=== PATIENT | female | born 1960 | race African-American/Black ===

== ENCOUNTER 2023-10-23 15:00 | Inpatient (IN) | payer OTHER, MEDICAID ==
[~2023-10-23 15:00] MED LIST: Iopamidol 370 76% 100 ML VIAL ONE
[2023-10-23] MEDS ORDERED: Albuterol 1.25 MG (3 mL) NEB ONE (15:09)
[2023-10-23 15:29] LABS: Actual Bicarbonate (HCO3v) 31.3 mEq/L (22-28); Analyzer IN Cardio CS ER; Base Excess 2.6 mEq/L (-2 - +2); Calcium, Ionized (venous) 1.06 mmol/L (1.16-1.32); Chloride (VBG) 99 mmol/L (98-106); Hematocrit-VBG 57 % (36.0-47.0); Hemoglobin (Hb) 19.3 g/dL (11.7-16.1); Potassium (VBG) 4.39 mmol/L (3.70-5.30); Puncture Site Other Site; Sodium 142 mmol/L (133-146); pH (venous) 7.319 (7.32-7.43)
[2023-10-23 16:08] LABS: ALT (SGPT) 42 U/L (8-55); AST (SGOT) 42 U/L (5-34); Alkaline Phosphatase 94 U/L (40-110); Anion Gap 18 mmol/L (10-20); BUN (Urea Nitrogen) 15 mg/dL (9.8-20.1); Bilirubin, Total 1.4 mg/dL (0.2-1.2); Calc. Creatinine Clearance 0 mL/min (70-130); Calcium 9.1 mg/dL (7.8-10.44); Carbon Dioxide 24 mmol/L (23-31); Chloride 103 mmol/L (98-107); Estimated GFR 90; Globulin 3.1 g/dL (2.4-3.5); Glucose 93 mg/dL (80-115); Magnesium 2.5 mg/dL (1.6-2.6); Protein, Total 7.1 g/dL (5.8-8.1); Sodium 140 mmol/L (136-145)
[2023-10-23 16:09] LABS: #Monocytes 0.7 10x3/uL (0.0-1.1); %Basophils 0.3 % (0.0-2.0); %Lymphocytes 13.5 % (18.0-47.0); %Monocytes 7.7 % (0.0-10.0); %Neutrophils 78.2 % (40.0-75.0); Hematocrit 53.9 % (34.9-44.5); Hemoglobin 18.3 g/dL (12.0-15.5); Mean Corpuscular Hemoglobin 38.4 pg (27.0-33.0); Mean Corpuscular Volume 113.2 fl (81.6-98.3); Platelet Count 153 10x3/uL (150-450); Red Blood Cell (RBC) Count 4.76 10x6/uL (3.90-5.03)
[2023-10-23 16:18] LABS: Troponin I 0.118 ng/mL (< 0.028)
[2023-10-23 16:38] LABS: Anisocytosis SLIGHT = 6-15 cells (100X) (0-5/hpf); Macrocytosis MODERATE=16-30 cells (100X) (0-5/hpf); Platelet Adequacy Comment Appears Adequate
[2023-10-23] MEDS ORDERED: Aspirin Chewable 81 MG TAB ONE (17:37)
[2023-10-23] MEDS ORDERED: Furosemide 40 MG (4 mL) VIAL ONE (17:37)
[2023-10-23] MEDS ORDERED: Azithromycin 500 MG VIAL ONE (17:38)
[2023-10-23] MEDS ORDERED: cefTRIAXone (ROCEPHIN) 1 GM VIAL ONE (17:38)
[2023-10-23] MEDS ORDERED: Ondansetron ODT 4 MG TAB PO PRN (17:40)
[2023-10-23] MEDS ORDERED: Acetaminophen 325 MG TAB PO PRN (17:40)
[2023-10-23] MEDS ORDERED: Ipratropium/Albuterol 3 ML NEB NEB PRN (17:47)
[2023-10-23 17:53] LABS: Actual Bicarbonate (HCO3v) 32.3 mEq/L (22-28); Analyzer IN Cardio CS ER; Base Excess 1.8 mEq/L (-2 - +2); Chloride (VBG) 99 mmol/L (98-106); Hematocrit-VBG 52 % (36.0-47.0); Hemoglobin (Hb) 17.8 g/dL (11.7-16.1); Potassium (VBG) 5.42 mmol/L (3.70-5.30); Puncture Site Other Site; RapidComm Collect By LAB; Sodium 141 mmol/L (133-146); pH (venous) 7.246 (7.32-7.43)
[2023-10-23] MEDS ORDERED: Azithromycin 500 MG in Sodium Chloride 0.9% 250 ML 250 ML IVPB SCH (18:00)
[2023-10-23 19:12] LABS: Lactic Acid 2.5 mmol/L (0.5-2.2)
[2023-10-23] MEDS ORDERED: Ipratropium/Albuterol 3 ML NEB ONE (19:51)
[2023-10-23 20:35] VITALS: BMI 20.5
[2023-10-23 21:59] LABS: Actual Bicarbonate (HCO3v) 29.9 mEq/L (22-28); Analyzer IN Cardio CS ICU; Base Excess 1.8 mEq/L (-2 - +2); Calcium, Ionized (venous) 1.08 mmol/L (1.16-1.32); Chloride (VBG) 100 mmol/L (98-106); Critical Notified By: CP.PH; Critical Notified Whom: RN-Ceranise; Hematocrit-VBG 54 % (36.0-47.0); Hemoglobin (Hb) 18.5 g/dL (11.7-16.1); Potassium (VBG) 4.17 mmol/L (3.70-5.30); Puncture Site Other Site; RapidComm Collect By LAB.YY; Sodium 142 mmol/L (133-146); pH (venous) 7.321 (7.32-7.43)
[2023-10-23 22:17] LABS: Troponin I 0.165 ng/mL (< 0.028)
[2023-10-24] MEDS: Ipratropium/Albuterol 3 ML NEB NEB SCH ×4 (01:15→20:05)
[2023-10-24 02:45] LABS: Anion Gap 15 mmol/L (10-20); BUN (Urea Nitrogen) 20 mg/dL (9.8-20.1); Calc. Creatinine Clearance 63 mL/min (70-130); Calcium 8.5 mg/dL (7.8-10.44); Carbon Dioxide 28 mmol/L (23-31); Chloride 103 mmol/L (98-107); Estimated GFR 78; Glucose 113 mg/dL (80-115); Potassium 4.2 mmol/L (3.5-5.1); Sodium 142 mmol/L (136-145)
[2023-10-24 02:48] LABS: #Monocytes 0.2 10x3/uL (0.0-1.1); #Neutrophils 4.4 10x3/uL (1.5-8.4); %Basophils 0.2 % (0.0-2.0); %Lymphocytes 9.6 % (18.0-47.0); %Monocytes 4.5 % (0.0-10.0); %Neutrophils 85.5 % (40.0-75.0); Hematocrit 49.1 % (34.9-44.5); Hemoglobin 17.1 g/dL (12.0-15.5); Mean Corpuscular HGB CONC 34.8 g/dL (32.0-36.0); Mean Corpuscular Hemoglobin 37.7 pg (27.0-33.0); Mean Corpuscular Volume 108.4 fl (81.6-98.3); Mean Platelet Volume 11.5 fl (7.4-10.4); Platelet Count 149 10x3/uL (150-450); Red Blood Cell (RBC) Count 4.53 10x6/uL (3.90-5.03); White Blood Cell (WBC) Count 5.1 10x3/uL (3.5-10.5)
[2023-10-24 02:50] LABS: Troponin I 0.129 ng/mL (< 0.028)
[2023-10-24] MEDS: Furosemide 40 MG (4 mL) VIAL SLOW IVP SCH ×2 (05:06→14:23)
[2023-10-24] MEDS: methylPREDNISolone Sod Succ/PF 125 MG/2 ML VIAL IVP SCH (08:07)
[2023-10-24] MEDS ORDERED: Enoxaparin 40 MG (0.4 mL) SYRINGE SC SCH (09:00)
[2023-10-24] MEDS ORDERED: cefTRIAXone\\ROCEPHIN 2 GM in Sodium Chloride 0.9% 100 ML IVPB SCH (17:30)
[2023-10-24] MEDS ORDERED: Azithromycin 500 MG in Sodium Chloride 0.9% 250 ML 250 ML IVPB SCH (18:00)
[2023-10-24] MEDS: Doxycycline 100 MG in Sodium Chloride 0.9% 100 ML IVPB SCH (20:07)
[2023-10-25] MEDS: Ipratropium/Albuterol 3 ML NEB NEB SCH ×2 (01:10→07:20)
[2023-10-25] MEDS ORDERED: Metoprolol Tartrate 25 MG TAB PO SCH (03:30)
[2023-10-25 03:33] LABS: #Eosinphils 0.2 10x3/uL (0.0-0.5); #Neutrophils 6.8 10x3/uL (1.5-8.4); %Basophils 0.3 % (0.0-2.0); %Eosinophils 1.8 % (0.0-6.0); %Lymphocytes 8.2 % (18.0-47.0); %Monocytes 11.5 % (0.0-10.0); Hematocrit 48.3 % (34.9-44.5); Hemoglobin 17.2 g/dL (12.0-15.5); Mean Corpuscular HGB CONC 35.6 g/dL (32.0-36.0); Mean Corpuscular Volume 109.5 fl (81.6-98.3); Mean Platelet Volume 11.8 fl (7.4-10.4); Platelet Count 148 10x3/uL (150-450); RBC Distribution Width 15.9 % (11.5-14.5); Red Blood Cell (RBC) Count 4.41 10x6/uL (3.90-5.03); White Blood Cell (WBC) Count 8.7 10x3/uL (3.5-10.5)
[2023-10-25] MEDS ORDERED: dilTIAZem 25 MG/5 ML VIAL SLOW IVP SCH (03:45)
[2023-10-25 03:47] LABS: Anion Gap 12 mmol/L (10-20); BUN (Urea Nitrogen) 32 mg/dL (9.8-20.1); Calc. Creatinine Clearance 48 mL/min (70-130); Calcium 8.7 mg/dL (7.8-10.44); Carbon Dioxide 31 mmol/L (23-31); Chloride 102 mmol/L (98-107); Estimated GFR 56; Glucose 105 mg/dL (80-115); Potassium 4.3 mmol/L (3.5-5.1); Sodium 141 mmol/L (136-145)
[2023-10-25 04:01] LABS: Magnesium 2.3 mg/dL (1.6-2.6)
[2023-10-25] MEDS ORDERED: dilTIAZem 125 MG, Admixture Fee 1 EACH in Sodium Chloride 0.9% 100 ML IVPB SCH (05:00)
[2023-10-25] MEDS ORDERED: Metoprolol Tartrate 5 MG (5 mL) VIAL IVP SCH (05:15)
[2023-10-25] MEDS: Furosemide 40 MG (4 mL) VIAL SLOW IVP SCH (05:18)
[2023-10-25 05:44] LABS: Actual Bicarbonate (HCO3v) 29.6 mEq/L (22-28); Analyzer IN Cardio CS ICU; Base Excess 3.9 mEq/L (-2 - +2); Calcium, Ionized (venous) 1.08 mmol/L (1.16-1.32); Chloride (VBG) 101 mmol/L (98-106); Critical Notified By: CP.PH; Hematocrit-VBG 51 % (36.0-47.0); Hemoglobin (Hb) 17.2 g/dL (11.7-16.1); Potassium (VBG) 4.76 mmol/L (3.70-5.30); Puncture Site Other Site; RapidComm Collect By LAB.YY; Sodium 142 mmol/L (133-146); pH (venous) 7.411 (7.32-7.43)
[2023-10-25] MEDS: Doxycycline 100 MG in Sodium Chloride 0.9% 100 ML IVPB SCH ×2 (08:43→20:13)
[2023-10-25] MEDS: methylPREDNISolone Sod Succ/PF 125 MG/2 ML VIAL IVP SCH (08:43)
[2023-10-25] MEDS: Apixaban 5 MG TAB PO SCH ×2 (08:45→20:13)
[2023-10-25] MEDS: Furosemide 40 MG TAB PO SCH (08:46)
[2023-10-25] MEDS ORDERED: Lisinopril 2.5 MG TAB PO SCH (09:00)
[2023-10-25] MEDS ORDERED: Arformoterol 15 MCG/2 ML NEB NEB SCH (09:45)
[2023-10-25] MEDS ORDERED: Budesonide 0.5 MG/2 ML NEB INH SCH (09:45)
[2023-10-25] MEDS: methylPREDNISolone Sod Succ 40 MG VIAL IVP SCH ×3 (12:00→23:54)
[2023-10-25] MEDS: dilTIAZem CD 120 MG CAP PO SCH (15:48)
[2023-10-25] MEDS: Arformoterol 15 MCG/2 ML NEB NEB SCH (19:19)
[2023-10-25] MEDS: Budesonide 0.5 MG/2 ML NEB INH SCH (19:21)
[2023-10-26 03:29] LABS: #Monocytes 0.1 10x3/uL (0.0-1.1); #Neutrophils 7.3 10x3/uL (1.5-8.4); %Basophils 0.3 % (0.0-2.0); %Lymphocytes 4.3 % (18.0-47.0); %Monocytes 1.8 % (0.0-10.0); %Neutrophils 93.2 % (40.0-75.0); Hematocrit 48.7 % (34.9-44.5); Hemoglobin 16.6 g/dL (12.0-15.5); Mean Corpuscular HGB CONC 34.1 g/dL (32.0-36.0); Mean Corpuscular Hemoglobin 37.3 pg (27.0-33.0); Mean Corpuscular Volume 109.4 fl (81.6-98.3); Platelet Count 164 10x3/uL (150-450); RBC Distribution Width 15.8 % (11.5-14.5); Red Blood Cell (RBC) Count 4.45 10x6/uL (3.90-5.03); White Blood Cell (WBC) Count 7.8 10x3/uL (3.5-10.5)
[2023-10-26 04:17] LABS: ALT (SGPT) 29 U/L (8-55); AST (SGOT) 25 U/L (5-34); Albumin 3.2 g/dL (3.4-4.8); Alkaline Phosphatase 73 U/L (40-110); Anion Gap 13 mmol/L (10-20); BUN (Urea Nitrogen) 36 mg/dL (9.8-20.1); Bilirubin, Direct 0.1 mg/dL (0.1-0.3); Bilirubin, Total 0.3 mg/dL (0.2-1.2); Calc. Creatinine Clearance 59 mL/min (70-130); Calcium 8.8 mg/dL (7.8-10.44); Carbon Dioxide 29 mmol/L (23-31); Chloride 102 mmol/L (98-107); Estimated GFR 72; Glucose 214 mg/dL (80-115); Potassium 4.3 mmol/L (3.5-5.1); Sodium 140 mmol/L (136-145)
[2023-10-26] MEDS: methylPREDNISolone Sod Succ 40 MG VIAL IVP SCH ×3 (05:27→20:18)
[2023-10-26] MEDS: Arformoterol 15 MCG/2 ML NEB NEB SCH ×2 (07:08→21:25)
[2023-10-26] MEDS: Budesonide 0.5 MG/2 ML NEB INH SCH ×2 (07:09→21:20)
[2023-10-26] MEDS: Doxycycline 100 MG in Sodium Chloride 0.9% 100 ML IVPB SCH ×2 (08:32→20:19)
[2023-10-26] MEDS: dilTIAZem CD 120 MG CAP PO SCH (08:42)
[2023-10-26] MEDS: Furosemide 40 MG TAB PO SCH (08:42)
[2023-10-26] MEDS: Apixaban 5 MG TAB PO SCH ×2 (08:42→20:18)
[2023-10-26] MEDS: Lorazepam 0.5 MG TAB PO PRN (18:17)
[2023-10-26] MEDS ORDERED: Polyethylene Glycol 3350 17 GM Packet PO SCH (20:00)
[2023-10-26] MEDS ORDERED: Metoprolol Tartrate 5 MG (5 mL) VIAL ONE (21:32)
[2023-10-26] MEDS ORDERED: Lorazepam 2 MG/ML VIAL ONE (21:44)
[2023-10-26] MEDS ORDERED: Lorazepam 2 MG/ML VIAL SLOW IVP SCH (21:45)
[2023-10-26] MEDS ORDERED: Metoprolol Tartrate 5 MG (5 mL) VIAL IVP SCH (21:45)
[2023-10-26] MEDS ORDERED: dilTIAZem 30 MG TAB PO SCH (22:00)
[2023-10-27] MEDS ORDERED: Nicotine 21 MG PATCH TD SCH (00:30)
[2023-10-27] MEDS ORDERED: Metoprolol Tartrate 5 MG (5 mL) VIAL IVP SCH (01:15)
[2023-10-27 03:37] LABS: #Monocytes 0.3 10x3/uL (0.0-1.1); #Neutrophils 10.2 10x3/uL (1.5-8.4); %Basophils 0.3 % (0.0-2.0); %Eosinophils 0.2 % (0.0-6.0); %Lymphocytes 5.1 % (18.0-47.0); %Monocytes 2.7 % (0.0-10.0); %Neutrophils 91.3 % (40.0-75.0); Hematocrit 51.7 % (34.9-44.5); Hemoglobin 17.7 g/dL (12.0-15.5); Mean Corpuscular HGB CONC 34.2 g/dL (32.0-36.0); Mean Corpuscular Hemoglobin 37.1 pg (27.0-33.0); Mean Corpuscular Volume 108.4 fl (81.6-98.3); Mean Platelet Volume 11.4 fl (7.4-10.4); Platelet Count 158 10x3/uL (150-450); RBC Distribution Width 15.8 % (11.5-14.5); Red Blood Cell (RBC) Count 4.77 10x6/uL (3.90-5.03); White Blood Cell (WBC) Count 11.1 10x3/uL (3.5-10.5)
[2023-10-27 03:50] LABS: Anion Gap 14 mmol/L (10-20); BUN (Urea Nitrogen) 40 mg/dL (9.8-20.1); Calc. Creatinine Clearance 65 mL/min (70-130); Carbon Dioxide 26 mmol/L (23-31); Chloride 103 mmol/L (98-107); Estimated GFR 81; Glucose 117 mg/dL (80-115); Sodium 138 mmol/L (136-145)
[2023-10-27 04:02] LABS: Magnesium 2.3 mg/dL (1.6-2.6)
[2023-10-27 04:07] LABS: Free T4 (Free Thyroxine) 0.93 ng/dL (0.70-1.48); Thyroid Stimulating Hormone 0.1144 uIU/mL (0.35-4.94)
[2023-10-27] MEDS: Budesonide 0.5 MG/2 ML NEB INH SCH ×2 (07:32→19:46)
[2023-10-27] MEDS: methylPREDNISolone Sod Succ 40 MG VIAL IVP SCH ×2 (07:35→20:57)
[2023-10-27] MEDS: Apixaban 5 MG TAB PO SCH ×2 (07:36→20:56)
[2023-10-27] MEDS: Polyethylene Glycol 3350 17 GM Packet PO SCH (07:36)
[2023-10-27] MEDS: Methimazole 5 MG TAB PO SCH (08:37)
[2023-10-27] MEDS: Doxycycline 100 MG in Sodium Chloride 0.9% 100 ML IVPB SCH ×2 (08:37→20:57)
[2023-10-27] MEDS ORDERED: dilTIAZem CD 120 MG CAP PO SCH ×3 (09:00→18:00)
[2023-10-27] MEDS ORDERED: dilTIAZem CD 180 MG CAP PO SCH (09:00)
[2023-10-27] MEDS ORDERED: Lactated Ringer's 500 ML IV SCH (16:45)
[2023-10-28] MEDS: Lorazepam 0.5 MG TAB PO PRN (00:44)
[2023-10-28] MEDS: Lactated Ringer's 500 ML IV SCH ×2 (02:35→02:45)
[2023-10-28 04:41] LABS: Hematocrit 53.4 % (34.9-44.5); Hemoglobin 18.8 g/dL (12.0-15.5); Mean Corpuscular HGB CONC 35.2 g/dL (32.0-36.0); Mean Corpuscular Hemoglobin 38.5 pg (27.0-33.0); Mean Corpuscular Volume 109.4 fl (81.6-98.3); Mean Platelet Volume 11.4 fl (7.4-10.4); Platelet Count 193 10x3/uL (150-450); RBC Distribution Width 15.5 % (11.5-14.5); Red Blood Cell (RBC) Count 4.88 10x6/uL (3.90-5.03); White Blood Cell (WBC) Count 9.9 10x3/uL (3.5-10.5)
[2023-10-28 04:55] LABS: Anion Gap 11 mmol/L (10-20); BUN (Urea Nitrogen) 36 mg/dL (9.8-20.1); Calc. Creatinine Clearance 67 mL/min (70-130); Calcium 8.9 mg/dL (7.8-10.44); Carbon Dioxide 27 mmol/L (23-31); Chloride 105 mmol/L (98-107); Estimated GFR 83; Glucose 155 mg/dL (80-115); Sodium 138 mmol/L (136-145)
[2023-10-28 05:11] LABS: Eosinophils 1 % (0-10); Lymphocytes 7 % (21-51); Monocytes 1 % (0-10); Neutrophil 91 % (42-75)
[2023-10-28 05:13] LABS: Crenated RBC SLIGHT = 1-5 cells (100X) (None Seen); Tear Drops MODERATE= 6-15 cells (100X) (0-1/hpf)
[2023-10-28 05:14] LABS: MDiff Complete? YES; Platelet Adequacy Comment Appears Adequate
[2023-10-28] MEDS: Budesonide 0.5 MG/2 ML NEB INH SCH ×2 (07:40→19:15)
[2023-10-28] MEDS: methylPREDNISolone Sod Succ 40 MG VIAL IVP SCH (08:59)
[2023-10-28] MEDS: Apixaban 5 MG TAB PO SCH ×2 (08:59→21:39)
[2023-10-28] MEDS: dilTIAZem CD 240 MG CAP PO SCH (08:59)
[2023-10-28] MEDS: Polyethylene Glycol 3350 17 GM Packet PO SCH (09:00)
[2023-10-28] MEDS ORDERED: dilTIAZem CD 180 MG CAP PO SCH (09:00)
[2023-10-28] MEDS: Doxycycline 100 MG in Sodium Chloride 0.9% 100 ML IVPB SCH ×2 (09:01→21:39)
[2023-10-28] MEDS: Methimazole 5 MG TAB PO SCH (10:35)
[2023-10-29 04:23] LABS: Anion Gap 10 mmol/L (10-20); BUN (Urea Nitrogen) 28 mg/dL (9.8-20.1); Calc. Creatinine Clearance 69 mL/min (70-130); Calcium 8.5 mg/dL (7.8-10.44); Carbon Dioxide 30 mmol/L (23-31); Chloride 105 mmol/L (98-107); Estimated GFR 87; Glucose 116 mg/dL (80-115); Hematocrit 50.4 % (34.9-44.5); Hemoglobin 17.6 g/dL (12.0-15.5); Mean Corpuscular HGB CONC 34.9 g/dL (32.0-36.0); Mean Corpuscular Hemoglobin 38.2 pg (27.0-33.0); Mean Corpuscular Volume 109.3 fl (81.6-98.3); Mean Platelet Volume 11.2 fl (7.4-10.4); Platelet Count 201 10x3/uL (150-450); Potassium 4.9 mmol/L (3.5-5.1); RBC Distribution Width 15.5 % (11.5-14.5); Red Blood Cell (RBC) Count 4.61 10x6/uL (3.90-5.03); Sodium 140 mmol/L (136-145)
[2023-10-29 04:49] LABS: Lymphocytes 7 % (21-51); Monocytes 10 % (0-10); Neutrophil 82 % (42-75); Reactive Lymphocytes 1 % (0-10)
[2023-10-29 04:50] LABS: Anisocytosis SLIGHT = 6-15 cells (100X) (0-5/hpf); Platelet Adequacy Comment Appears Adequate; Target Cells SLIGHT = 2-5 cells (100X) (0-1/hpf); Tear Drops SLIGHT = 2-5 cells (100X) (0-1/hpf)
[2023-10-29 04:51] LABS: MDiff Complete? YES
[2023-10-29] MEDS: Apixaban 5 MG TAB PO SCH ×2 (08:42→21:16)
[2023-10-29] MEDS: Methimazole 5 MG TAB PO SCH (08:42)
[2023-10-29] MEDS: dilTIAZem CD 240 MG CAP PO SCH (08:43)
[2023-10-29] MEDS: methylPREDNISolone Sod Succ 40 MG VIAL IVP SCH (08:44)
[2023-10-29] MEDS: Furosemide 40 MG TAB PO SCH (08:45)
[2023-10-29] MEDS: Doxycycline 100 MG in Sodium Chloride 0.9% 100 ML IVPB SCH ×2 (08:45→21:26)
[2023-10-29] MEDS: Polyethylene Glycol 3350 17 GM Packet PO SCH (09:02)
[2023-10-29] MEDS ORDERED: Amiodarone 450 MG in Dextrose 5% in Water 250 ML IVPB SCH (09:30)
[2023-10-29] MEDS ORDERED: Furosemide 40 MG (4 mL) VIAL SLOW IVP SCH (09:30)
[2023-10-29] MEDS ORDERED: Amiodarone In Dextrose 100 ML IVPB SCH ×2 (09:30→10:15)
[2023-10-29] MEDS: Amiodarone In Dextrose 200 ML IVPB SCH ×2 (10:34→17:00)
[2023-10-29] MEDS: Budesonide 0.5 MG/2 ML NEB INH SCH ×2 (10:56→19:35)
[2023-10-30] MEDS: Amiodarone In Dextrose 200 ML IVPB SCH (03:23)
[2023-10-30 05:31] LABS: #Neutrophils 8.9 10x3/uL (1.5-8.4); %Basophils 0.4 % (0.0-2.0); %Lymphocytes 9.9 % (18.0-47.0); %Monocytes 8.9 % (0.0-10.0); %Neutrophils 80.3 % (40.0-75.0); Hematocrit 51.3 % (34.9-44.5); Hemoglobin 17.9 g/dL (12.0-15.5); Mean Corpuscular HGB CONC 34.9 g/dL (32.0-36.0); Mean Corpuscular Hemoglobin 37.8 pg (27.0-33.0); Mean Corpuscular Volume 108.2 fl (81.6-98.3); Mean Platelet Volume 11.3 fl (7.4-10.4); Platelet Count 223 10x3/uL (150-450); RBC Distribution Width 15.4 % (11.5-14.5); Red Blood Cell (RBC) Count 4.74 10x6/uL (3.90-5.03); White Blood Cell (WBC) Count 11.1 10x3/uL (3.5-10.5)
[2023-10-30 05:35] LABS: Anion Gap 11 mmol/L (10-20); BUN (Urea Nitrogen) 35 mg/dL (9.8-20.1); Calc. Creatinine Clearance 66 mL/min (70-130); Calcium 8.6 mg/dL (7.8-10.44); Carbon Dioxide 30 mmol/L (23-31); Chloride 103 mmol/L (98-107); Estimated GFR 82; Glucose 117 mg/dL (80-115); Magnesium 2.4 mg/dL (1.6-2.6); Potassium 4.4 mmol/L (3.5-5.1); Sodium 140 mmol/L (136-145)
[2023-10-30] MEDS: Budesonide 0.5 MG/2 ML NEB INH SCH ×2 (07:55→19:25)
[2023-10-30] MEDS: Apixaban 5 MG TAB PO SCH ×2 (08:32→20:57)
[2023-10-30] MEDS: Doxycycline 100 MG in Sodium Chloride 0.9% 100 ML IVPB SCH ×2 (08:32→20:57)
[2023-10-30] MEDS: Furosemide 40 MG TAB PO SCH (08:32)
[2023-10-30] MEDS: Amiodarone 200 MG TAB PO SCH ×2 (08:32→20:56)
[2023-10-30] MEDS: Methimazole 5 MG TAB PO SCH (08:33)
[2023-10-30] MEDS: methylPREDNISolone Sod Succ 40 MG VIAL IVP SCH (08:33)
[2023-10-30] MEDS: Polyethylene Glycol 3350 17 GM Packet PO SCH (08:33)
[2023-10-31 03:52] LABS: Anion Gap 13 mmol/L (10-20); BUN (Urea Nitrogen) 34 mg/dL (9.8-20.1); Calc. Creatinine Clearance 63 mL/min (70-130); Calcium 8.6 mg/dL (7.8-10.44); Carbon Dioxide 30 mmol/L (23-31); Chloride 102 mmol/L (98-107); Estimated GFR 78; Glucose 94 mg/dL (80-115); Magnesium 2.3 mg/dL (1.6-2.6); Sodium 140 mmol/L (136-145)
[2023-10-31] MEDS: Budesonide 0.5 MG/2 ML NEB INH SCH (07:00)
[2023-10-31] MEDS: Amiodarone 200 MG TAB PO SCH (08:51)
[2023-10-31] MEDS: Apixaban 5 MG TAB PO SCH (08:51)
[2023-10-31] MEDS: Doxycycline 100 MG in Sodium Chloride 0.9% 100 ML IVPB SCH (08:52)
[2023-10-31] MEDS: Furosemide 40 MG TAB PO SCH (08:52)
[2023-10-31] MEDS: Polyethylene Glycol 3350 17 GM Packet PO SCH (08:52)
[2023-10-31] MEDS ORDERED: predniSONE 20 MG TAB PO SCH (11:00)
[2023-10-31] MEDS: Methimazole 5 MG TAB PO SCH (11:26)
[2023-10-31 12:03] VITALS: BP 133/73; TEMP 98.8
[2023-11-01] MEDS ORDERED: predniSONE 20 MG TAB PO SCH (08:00)
== END 2023-10-31 16:15 | disposition home or self-care (01) | DRG 291 ==
LOC: CSHERS 15:00 → SUATTDRO 15:00 → CSHIMCU 18:00 → CSHTELE 10-27 16:50
PROVIDERS: ADMIT Family Medicine; ATTEND Internal Medicine
PROC: 4A133R1 Monitoring of Arterial Saturation, Peripheral, Percutaneous Approach (ICD-10-PCS; principal; 2023-10-23)
PROC: 5A09457 Assistance with Respiratory Ventilation, 24-96 Consecutive Hours, Continuous Positive Airway Pressure (ICD-10-PCS; 2023-10-23)
DX: I11.0 Hypertensive heart disease with heart failure (principal); I50.33 Acute on chronic diastolic (congestive) heart failure; J96.22 Acute and chronic respiratory failure with hypercapnia; J44.1 Chronic obstructive pulmonary disease with (acute) exacerbation; I48.92 Unspecified atrial flutter; I24.89 Other forms of acute ischemic heart disease; F32.A Depression, unspecified; F17.210 Nicotine dependence, cigarettes, uncomplicated; Z79.899 Other long term (current) drug therapy; I48.91 Unspecified atrial fibrillation; I5A Non-ischemic myocardial injury (non-traumatic); Z79.01 Long term (current) use of anticoagulants; Z90.49 Acquired absence of other specified parts of digestive tract; Z90.710 Acquired absence of both cervix and uterus
CPT/HCPCS: 36415; 71045; 71275; 80048; 80053; 80076; 82805; 83605; 83735; 83880; 84145; 84439; 84443; 84484; 85025; 85379; 87040; 93005; 93010; 93306; 94640; 94660; 94760; 94762; 96365; 96375; J0283; J0456; J0696; J1650; J1940; J2060; J2920; J2930; J3490; J7120; J7512; J7620; J7626; Q9967